=== PATIENT | female | born 2000 | race African-American/Black ===

== ENCOUNTER 2019-02-28 15:26 | Emergency (ER) | payer SELFPAY ==
[2019-02-28] MEDS ORDERED: ONDANSETRON ODT 4 MG TAB ONE (16:20)
[2019-02-28] MEDS ORDERED: IPRATROPIUM/ALBUTEROL SULFATE 3 ML SOLUTION IH ONE (16:30)
[2019-02-28] MEDS ORDERED: DEXAMETHASONE SOD PHOSPHATE 10MG/ML 1ML VIAL ONE (17:27)
[2019-02-28 17:58] LABS: RAPID GROUP A STREP POSITIVE (NEGATIVE)
== END 2019-02-28 18:31 | disposition home or self-care (01) ==
LOC: EDH 15:26
DX: J02.0 Streptococcal pharyngitis (principal); J20.9 Acute bronchitis, unspecified; Z98.890 Other specified postprocedural states
CPT/HCPCS: 71046; 87804 ×2; 87880; 94640; 96372; 99285; J1100